=== PATIENT | female | born 1985 | race African-American/Black ===

== ENCOUNTER 2016-10-03 15:06 | Emergency (ER) | payer OTHER ==
[~2016-10-03] VITALS: Ht 167.6 cm; Wt 95.6 kg
[~2016-10-03 15:06] MED LIST: BENADRYL25 MG PO; FLEXERIL10 MG PO; IRON325 M1 PO; LAMICTAL100 MG PO; MEGACE40 MG PO; MOTRIN800 MG PO; OMEPRAZOLE20 MG PO; PROAIR HFA8.5 GM IH; TOPIRAMATE50 MG PO; VICODIN 5-3001 EACH PO; VYVANSE40 MG PO
[2016-10-03] MEDS ORDERED: AUGMENTIN875 MG PO (17:50)
[2016-10-03] MEDS ORDERED: ZOFRAN4 MG PO (17:50)
[2016-10-03 19:46] VITALS: BP 125/56
== END 2016-10-03 20:05 | disposition home or self-care (01) ==
LOC: EME 15:06
DX: S61.432A Puncture wound without foreign body of left hand, initial encounter (principal); W54.0XXA Bitten by dog, initial encounter; Y93.89 Activity, other specified; Z23 Encounter for immunization; Z29.14 Encounter for prophylactic rabies immune globulin; J45.909 Unspecified asthma, uncomplicated; K21.9 Gastro-esophageal reflux disease without esophagitis; Z98.84 Bariatric surgery status; Z87.891 Personal history of nicotine dependence
CPT/HCPCS: 99281; 99284